=== PATIENT | male | born 1965 | race Caucasian/White ===

== ENCOUNTER 2016-12-13 18:14 | Emergency (ER) | payer SELFPAY ==
--- NOTE | 2016-12-13 21:39 | ED CLINICAL REPORT ---
Clinical Report - Physicians/Mid Levels [facility] [address] [place] [address] 12/13/2016 18:15 Patient: FELIX TILLMAN Time Seen: 18:57; initial patient contact. Arrived- By private vehicle. Historian- patient. HISTORY OF PRESENT ILLNESS Chief Complaint: HEMATURIA. This started about 2 days ago and is still present. The problem is described as moderate. No discomfort with urination, urinary frequency, urgency of urination or flank pain. Able to void. Not voiding only small amounts. Sexual history is noncontributory. Similar symptoms previously: Several times. Recent medical care: Not recently seen/assessed. REVIEW OF SYSTEMS The patient has had a sore throat, nasal congestion, fever, chills and abdominal pain. He has had sinus pain and a cough. No flank pain, vomiting or diarrhea. The patient has had hematuria. All systems otherwise negative, except as recorded above. PAST HISTORY ( Palendromic Rheumatism. Hypertension. Stage 1 kidney disease . Neck Pain. SURGERIES: Discectomy for intervertebral herniated disc, nucleus pulposus.). Medications: PredniSONE Oral (Tablet 5 mg) 1 tablet, daily. Plaquenil Oral (Tablet 200 mg) 1 tablet, bid. Lisinopril Oral (Tablet 5 mg) 1 tablet, daily. Allergies: Iodine. SOCIAL HISTORY Never smoker. No alcohol use or drug use. ADDITIONAL NOTES The nursing notes have been reviewed with agreement regarding the chief complaint, PMH and patient medications and allergies. PHYSICAL EXAM Vital Signs: 12/13/2016 18:41 BP: 127/77. HR: 74. RR: 18. O2 saturation: 97%. Temp: 98.8 F. Pain level now: 10. Have been reviewed as normal. Appearance: Alert. Oriented X3. No acute distress. ENT: Tenderness present to percussion/palpation of the sinuses. Mild generalized pharyngeal erythema with right tonsillar swelling and left tonsillar swelling. Neck: No lymphadenopathy. CVS: Heart sounds normal. Rate normal. Rhythm normal. Respiratory: No respiratory distress. Breath sounds normal. Abdomen: Soft and nontender. Bowel sounds normal. No organomegaly. No mass. Back: Normal external inspection. No CVA tenderness. Skin: Skin warm and dry. Normal skin color. No rash. Extremities: No lower extremity edema. Neuro: Oriented X 3. LABS, X-RAYS, AND EKG Laboratory Tests: UA-Culture if indicated: (RONALD: 12/13/2016 19:25) ( [facility] 12/13/2016 19:46) Final results Test Result Flag Units (Reference) URINE COLOR GREEN URINE APPEARANCE TURBID URINE GLUCOSE NEGATIVE (NEGATIVE) URINE BILIRUBIN NEGATIVE (NEGATIVE) URINE KETONE TRACE (NEGATIVE) URINE SPECIFIC GRAVITY >= 1.030 (1.010-1.030) URINE PH 5.0 (5.0-8.0) URINE PROTEIN 2+ (NEGATIVE) URINE UROBILINOGEN 0.2 EU/dL (0.2-1.0) URINE NITRITE NEGATIVE (NEGATIVE) URINE BLOOD 3+ (NEGATIVE) URINE LEUK ESTERASE NEGATIVE (NEGATIVE) URINE RBC 50-75 rbc/hpf (0-1) URINE WBC 10-15 wbc/hpf (0-1) URINE EPITHELIAL CELLS 10-15 EPI/hpf (0-5) RENAL TUBULAR CELLS URINE BACTERIA MANY (4+) (NONE SEEN) URINE COMMENT CULTURE INDICATED HYALINE CASTS 3+GRANULAR CASTS 2+CELLULAR CASTS-WBC 2+URINE CULTURES ARE SET-UP BASED ON THE FOLLOWING CRITERIA:POSITIVE NITRITEPOSITIVE LEUKOCYTE ESTERASEGREATER THAN 10 WHITE BLOOD CELLSMODERATE (2+) OR GREATER BACTERIA CBC w Diff: (RONALD: 12/13/2016 17:10) ( [facility] 12/13/2016 19:31) Final results Test Result Flag Units (Reference) WHITE BLOOD COUNT 10.1 K/uL (4.5-11.5) RED BLOOD COUNT 5.83 M/uL (4.50-5.90) HEMOGLOBIN 16.0 gm/dL (13.5-17.5) HEMATOCRIT 50.2 % (41.0-53.0) MEAN CELL VOLUME 86 fL (80-100) MEAN CORPUSCULAR HGB 28 pg (26-34) MEAN CORPUSCULAR HGB CONC 32 g/dL (31-37) RED CELL DISTRIBUTION WIDTH 13.2 % (11.6-14.8) PLATELET COUNT 256 K/uL (150-400) LYMPH % 9.7 L % (25-40) MONO % 5.2 % (3-14) GRANULOCYTE % 85.1 CMP: (RONALD: 12/13/2016 17:10) ( MsgRcvd 12/13/2016 19:35) Final results Test Result Flag Units (Reference) GLUCOSE 103 mg/dL (70-110) BUN 24 H mg/dL (7-18) CREATININE 1.8 H mg/dL (0.6-1.3) Estimated GFR 42.84 mL/min Estimated GFR- 51.92 mL/min Note: Persistent reduction over 3 months in eGFR<60 mL/min/1.73 m2 defines CKD. Patients with eGFR values>=60 mL/min/1.73 m2 may also have CKD if evidence ofpersistent proteinuria. Additional information may be foundat www.kidney.org. SODIUM 134 L mmol/L (136-145) POTASSIUM 5.1 mmol/L (3.5-5.1) CHLORIDE 97 L mmol/L (98-107) CARBON DIOXIDE 31 mmol/L (21-32) CALCIUM 8.7 mg/dL (8.5-10.1) TOTAL PROTEIN 7.7 g/dL (6.4-8.2) ALBUMIN 3.6 g/dL (3.3-5.0) BILIRUBIN, TOTAL 0.5 mg/dL (0.0-1.0) ALKALINE PHOSPHATASE 77 U/L (46-116) AST (SGOT) 28 U/L (15-37) ALT (SGPT) 56 U/L (12-78) LIPASE 128 U/L (73-393) AMYLASE 56 U/L (25-115) . PROGRESS AND PROCEDURES Course of Care: 12/13/2016 18:41 BP: 127/77. HR: 74. RR: 18. O2 saturation: 97%. Temp: 98.8 F. Pain level now: 02/05. Vital Signs: have been reviewed as normal. Consult obtained from nephrology. call returned 21:00 Dr. Trevino, recommended Tx UTI and repeat renal fxn in 2 days. Disposition: Discharged home in good and improved condition. Condition: good. CLINICAL IMPRESSION Urinary tract infection with cystitis and hematuria. Mild chronic renal insufficiency. Acute maxillary sinusitis INSTRUCTIONS Drink plenty of fluids. Your Current Medications: CONTINUE TAKING THE FOLLOWING MEDICATIONS: Lisinopril Oral : Tablet 5 mg, 1 tablet daily. Plaquenil Oral : Tablet 200 mg, 1 tablet bid. PredniSONE Oral : Tablet 5 mg, 1 tablet daily. Prescription Medications: Levofloxacin 500 mg: take 1 tab orally every day for 7 days. No refills. Follow-up: Follow up with your doctor Dr. Trevino. Blood pressure screening was not performed during this visit because the patient has an active diagnosis of hypertension. (Electronically signed by Erick Cee Dr. 12/15/2016 3:40)
--- NOTE | 2016-12-13 21:39 | ED NURSING NOTES ---
Clinical Report - Nurses [facility] [address] [place] [address] 12/13/2016 18:15 Patient: FELIX TILLMAN TRIAGE Triage time 18:41 Dec 13 2016. Acuity: LEVEL 3. Chief Complaint: HEMATURIA. 18:41 12/13/16. SEPSIS SCREEN: Sepsis Screen. Negative (no infection suspected/documented). --18:48 Henrietta Trevino R.N. 18:41 12/13/16. BP: 127/77. HR: 74. RR: 18. O2 saturation: 97%. Temp: 98.8 F. Pain level now: 02/05. --18:48 Henrietta Trevino R.N. Weight: 78 kg measured. Height/Length: 69 inches Per Patient. BMI: 25.4. --18:40 Henrietta Trevino R.N. Medications Lisinopril Oral (Tablet 5 mg) 1 tablet, daily. --18:43 Henrietta Trevino R.N. Plaquenil Oral (Tablet 200 mg) 1 tablet, bid. --18:44 Henrietta Trevino R.N. PredniSONE Oral (Tablet 5 mg) 1 tablet, daily. --18:44 Henrietta Trevino R.N. Medication/allergy information source: the patient. --18:48 Henrietta Trevino R.N. Allergies Iodine. --18:44 Henrietta Trevino R.N. History Arrived by private vehicle. Historian: patient. Accompanied by family. Onset. (5 days ago). ( 2 weeks URI, 5 days ago had pain in left flank but not now. Urine turned dark 2 nights ago..Went to [facility] walk in clinic and was sent here for eval of fever and hematuria). He has been unable to void. PAST MEDICAL HX: Immunizations: seasonal influenza. Has not received pneumonia vaccine. SOCIAL HX: Never smoker. Occasional alcohol use. No drug use. No infectious disease exposure. ABUSE ASSESSMENT: No report of abuse. SELF HARM ASSESSMENT: A self harm assessment was performed. The patient answered "no" to the question "Have you recently felt down, depressed, or hopeless?", "Have you noticed less interest or pleasure in doing things?", "Do you have thoughts of harming or killing yourself?", "Are you here because you tried to hurt yourself?", "Have you ever tried to hurt yourself before today?", "Have you recently had thoughts about harming or killing others?" and "Do you have any dangerous items in your possession?". FALL RISK ASSESSMENT: Fall risk assessment completed. No fall risk identified. NUTRITIONAL RISK ASSESSMENT: The nutritional risk assessment revealed no deficiencies. FUNCTIONAL ASSESSMENT: Functional assessment: no impairments noted. LEARNING NEEDS ASSESSMENT: The learning needs assessment revealed no barriers. SKIN INTEGRITY ASSESSMENT: Skin integrity risk assessment completed. No skin integrity risk identified. --18:48 Henrietta Trevino R.N. PROBLEMS: Palendromic Rheumatism. Hypertension. Stage 1 kidney disease . Neck Pain. --18:45 Henrietta Trevino R.N. ADDITIONAL SURGERIES: Discectomy for intervertebral herniated disc, nucleus pulposus. --18:45 Henrietta Trevino R.N. Interventions ID band on patient. --18:48 Henrietta Trevino R.N. PHYSICAL ASSESSMENT 18:45 12/13/16. Ambulatory to room. GENERAL / NEURO / PSYCH: Alert. Oriented X 4. HEENT: Mucous membranes are pink. RESPIRATORY: Respirations not labored. Breath sounds within normal limits. CVS: Capillary refill less than 2 seconds. GI / : Abdomen soft. No emesis noted. Pain with urination. Hematuria noted. No CVA tenderness or urgency of urination. Patient is not incontinent of urine. SKIN: Skin is warm and dry. --19:19 Henrietta Trevino R.N. NURSING PROGRESS NOTES 18:41 12/13/16. The initial plan of care for this patient includes an assessment with efforts to address the patient's anxiety; the presence of pain; impairment of the genitourinary system. This plan of care was discussed with the patient and family. Patient gowned. Reassurance given. Patient identifiers checked. Call light placed in reach. Side rails up x 1. Bed placed in lowest position. Brakes of bed on. Patient ready for evaluation. --19:19 Henrietta Trevino R.N. 19:10 12/13/2016 Site #1 started via IV in the right antecubital space with an 18g angiocath, with aseptic technique and good blood return; one attempt. Blood drawn: rainbow set. Labeled in the presence of the patient and sent to the lab. --19:20 Henrietta Trevino R.N. 19:21 12/13/2016 Started bag #1 1000 mL IV Fluids IV NS (Saline); at 3000 mL/hr over 20 minute(s) via site #1. Allergies verified and confirmed 5 rights. IV patency established. IV site checked: no pain, redness, or swelling. IV flushed thoroughly pre- and post-medication administration. --19:21 Henrietta Trevino R.N. 19:25 12/13/16. Patient ID band checked for patient name and birthdate. Instructions provided to collect clean catch urine and patient verbalized understanding. Clean catch urine collected with return of green-colored brown-colored urine; sample sent to lab for urinalysis. Specimen labeled in the presence of the patient. --19:28 Henriteta Trevino R.N. 19:41 12/13/2016 IV Fluids IV NS Discontinued: bag #1. Total amount infused: 1000 mL. IV patency established. IV site checked: no pain, redness, or swelling. IV flushed thoroughly. --19:48 Henrietta Trevino R.N. 21:31 12/13/16. ( Dr Cee in room to review test results and plan of follow up care). --21:31 Henrietta Trevino R.N. 21:54 12/13/16. --21:54 Henrietta Trevino R.N. Intake & Output IV fluids: 1000. Urine: 30 mL. --21:55 Henrietta Trevino R.N. [facility] / [facility]-- 20:34 12/13[facility]16. Condition at departure: improved and stable. The goals identified in the patient's plan of care were met. No learning barriers present. Reviewed medication(s) side effects, precautions, dosing and course information. Prescription(s) given to the patient. Patient verbalized understanding. Written instructions provided in Indian. The patient was discharged home and accompanied by electrical integrator. He left the Emergency Department ambulatory and via private vehicle. Air Hole Driller driving. FALL RISK ASSESSMENT: Fall risk assessment completed. No fall risk identified. --20:34 Henrietta Trevino R.N. --END STRIKE>> Charted On Wrong Patient --20:38 Henrietta Trevino R.N. [facility]-- Departure time: 20:35 Dec 13 2016. --20:35 Henrietta Trevino R.N. --END STRIKE>> Correction --20:38 Henrietta Trevino R.N. 21:52 12/13/2016 Site #1 removed upon discharge. Catheter intact. Bandaid applied. --21:54 Henrietta Trevino R.NAmber 21:54 12/13/16. Condition at departure: improved and stable. The goals identified in the patient's plan of care were met. FALL RISK ASSESSMENT: Fall risk assessment completed. No fall risk identified. --21:54 Henrietta Trevino R.N. 21:54 12/13/16. BP: 104/71. HR: 78. RR: 16. O2 saturation: 100%. Temp: 98.6 F. Pain level now 02/05. --21:54 Henrietta Trevino R.N. 22:00 12/13/16. No learning barriers present. Discharge instructions provided and reviewed with the patient and spouse. Reviewed medication(s) side effects, precautions, dosing and course information. Prescription(s) given to the patient. Reviewed referral to a drum sander and primary care physician for followup and testing. Patient and spouse verbalized understanding. Written instructions provided in Indian. The patient was discharged home and accompanied by spouse. He left the Emergency Department ambulatory and via private vehicle. Spouse driving. --22:00 Henrietta Trevino R.N. Departure time: 22:01 Dec 13 2016. --22:01 Henrietta Trevino R.N. Locked/Released at 12/13/2016 22:01 by Henrietta Trevino R.N.
--- NOTE | 2016-12-13 21:39 | ED NURSING NOTES ---
Clinical Report - Nurses [facility] [address] [place] [address] 12/13/2016 18:15 Patient: FELIX TILLMAN TRIAGE Triage time 18:41 Dec 13 2016. Acuity: LEVEL 3. Chief Complaint: HEMATURIA. 18:41 12/13/16. SEPSIS SCREEN: Sepsis Screen. Negative (no infection suspected/documented). --18:48 Henrietta Trevino R.N. 18:41 12/13/16. BP: 127/77. HR: 74. RR: 18. O2 saturation: 97%. Temp: 98.8 F. Pain level now: 02/05. --18:48 Henrietta Trevino R.N. Weight: 78 kg measured. Height/Length: 69 inches Per Patient. BMI: 25.4. --18:40 Henrietta Trevino R.N. Medications Lisinopril Oral (Tablet 5 mg) 1 tablet, daily. --18:43 Henrietta Trevino R.N. Plaquenil Oral (Tablet 200 mg) 1 tablet, bid. --18:44 Henrietta Trevino R.N. PredniSONE Oral (Tablet 5 mg) 1 tablet, daily. --18:44 Henrietta Trevino R.N. Medication/allergy information source: the patient. --18:48 Henrietta Trevino R.N. Allergies Iodine. --18:44 Henrietta Trevino R.N. History Arrived by private vehicle. Historian: patient. Accompanied by family. Onset. (5 days ago). ( 2 weeks URI, 5 days ago had pain in left flank but not now. Urine turned dark 2 nights ago..Went to [facility] walk in clinic and was sent here for eval of fever and hematuria). He has been unable to void. PAST MEDICAL HX: Immunizations: seasonal influenza. Has not received pneumonia vaccine. SOCIAL HX: Never smoker. Occasional alcohol use. No drug use. No infectious disease exposure. ABUSE ASSESSMENT: No report of abuse. SELF HARM ASSESSMENT: A self harm assessment was performed. The patient answered "no" to the question "Have you recently felt down, depressed, or hopeless?", "Have you noticed less interest or pleasure in doing things?", "Do you have thoughts of harming or killing yourself?", "Are you here because you tried to hurt yourself?", "Have you ever tried to hurt yourself before today?", "Have you recently had thoughts about harming or killing others?" and "Do you have any dangerous items in your possession?". FALL RISK ASSESSMENT: Fall risk assessment completed. No fall risk identified. NUTRITIONAL RISK ASSESSMENT: The nutritional risk assessment revealed no deficiencies. FUNCTIONAL ASSESSMENT: Functional assessment: no impairments noted. LEARNING NEEDS ASSESSMENT: The learning needs assessment revealed no barriers. SKIN INTEGRITY ASSESSMENT: Skin integrity risk assessment completed. No skin integrity risk identified. --18:48 Henrietta Trevino R.N. PROBLEMS: Palendromic Rheumatism. Hypertension. Stage 1 kidney disease . Neck Pain. --18:45 Henrietta Trevino R.N. ADDITIONAL SURGERIES: Discectomy for intervertebral herniated disc, nucleus pulposus. --18:45 Henrietta Trevino R.N. Interventions ID band on patient. --18:48 Henrietta Trevino R.N. PHYSICAL ASSESSMENT 18:45 12/13/16. Ambulatory to room. GENERAL / NEURO / PSYCH: Alert. Oriented X 4. HEENT: Mucous membranes are pink. RESPIRATORY: Respirations not labored. Breath sounds within normal limits. CVS: Capillary refill less than 2 seconds. GI / : Abdomen soft. No emesis noted. Pain with urination. Hematuria noted. No CVA tenderness or urgency of urination. Patient is not incontinent of urine. SKIN: Skin is warm and dry. --19:19 Henrietta Trevino R.N. NURSING PROGRESS NOTES 18:41 12/13/16. The initial plan of care for this patient includes an assessment with efforts to address the patient's anxiety; the presence of pain; impairment of the genitourinary system. This plan of care was discussed with the patient and family. Patient gowned. Reassurance given. Patient identifiers checked. Call light placed in reach. Side rails up x 1. Bed placed in lowest position. Brakes of bed on. Patient ready for evaluation. --19:19 Henrietta Trevino R.N. 19:10 12/13/2016 Site #1 started via IV in the right antecubital space with an 18g angiocath, with aseptic technique and good blood return; one attempt. Blood drawn: rainbow set. Labeled in the presence of the patient and sent to the lab. --19:20 Henrietta Trevino R.N. 19:21 12/13/2016 Started bag #1 1000 mL IV Fluids IV NS (Saline); at 3000 mL/hr over 20 minute(s) via site #1. Allergies verified and confirmed 5 rights. IV patency established. IV site checked: no pain, redness, or swelling. IV flushed thoroughly pre- and post-medication administration. --19:21 Henrietta Trevino R.N. 19:25 12/13/16. Patient ID band checked for patient name and birthdate. Instructions provided to collect clean catch urine and patient verbalized understanding. Clean catch urine collected with return of green-colored brown-colored urine; sample sent to lab for urinalysis. Specimen labeled in the presence of the patient. --19:28 Henrietta Trevino R.N. 19:41 12/13/2016 IV Fluids IV NS Discontinued: bag #1. Total amount infused: 1000 mL. IV patency established. IV site checked: no pain, redness, or swelling. IV flushed thoroughly. --19:48 Henrietta Trevino R.N. 21:31 12/13/16. ( Dr Cee in room to review test results and plan of follow up care). --21:31 Henrietta Trevino R.N. 21:54 12/13/16. --21:54 Henrietta Trevino R.N. Intake & Output IV fluids: 1000. Urine: 30 mL. --21:55 Henrietta Trevino R.N. [facility] 12/13[facility]16. Condition at departure: improved and stable. The goals identified in the patient's plan of care were met. No learning barriers present. Reviewed medication(s) side effects, precautions, dosing and course information. Prescription(s) given to the patient. Patient verbalized understanding. Written instructions provided in [place] Of [place]. The patient was discharged home and accompanied by heavy equipment diesel mechanic. He left the Emergency Department ambulatory and via private vehicle. Agile Test Lead driving. FALL RISK ASSESSMENT: Fall risk assessment completed. No fall risk identified. --20:34 Henrietta Trevino R.N. --END STRIKE>> Charted On Wrong Patient --20:38 Henrietta Tre[facility]ino R.N. [facility]-- Departure time: 20:35 Dec 13 2016. --20:35 Henrietta Trevino R.N. --END STRIKE>> Correction --20:38 Henrietta Trevino R.N. 21:52 12/13/2016 Site #1 removed upon discharge. Catheter intact. Bandaid applied. --21:54 Henrietta Trevino R.NAmber 21:54 12/13/16. Condition at departure: improved and stable. The goals identified in the patient's plan of care were met. FALL RISK ASSESSMENT: Fall risk assessment completed. No fall risk identified. --21:54 Henrietta Trevino R.N. 21:54 12/13/16. BP: 104/71. HR: 78. RR: 16. O2 saturation: 100%. Temp: 98.6 F. Pain level now 02/05. --21:54 Henrietta Trevino R.N. 22:00 12/13/16. No learning barriers present. Discharge instructions provided and reviewed with the patient and spouse. Reviewed medication(s) side effects, precautions, dosing and course information. Prescription(s) given to the patient. Reviewed referral to a senior network architect and primary care physician for followup and testing. Patient and spouse verbalized understanding. Written instructions provided in [place]. The patient was discharged home and accompanied by spouse. He left the Emergency Department ambulatory and via private vehicle. Spouse driving. --22:00 Henrietta Trevino R.N. Departure time: 22:01 Dec 13 2016. --22:01 Henrietta Trevino R.N. Locked/Released at 12/13/2016 22:01 by Henrietta Trevino R.N.
--- NOTE | 2016-12-13 21:40 | ED ORDER SUMMARY ---
..... Patient: FELIX TILLMAN OrderSheet Merged With [facility] VisitID: [id number] [place] [address] 51y, M Registration Date/Time: 12/13/2016 ORDER SHEET Weight: 78.0 kg (measured) Allergies: Iodine GENERAL ORDERS: CBC w Diff Urgent (19:05 12/13/2016 Arelis Beaulieu) (Ack 19:07 AMcQuoid ER Tech1) (19:21 EInderbitzen R.N.) CMP Urgent (19:05 12/13/2016 Arelis Beaulieu) (Ack 19:07 AMcQuoid ER Tech1) (19:21 EInderbitzen R.N.) UA-Culture if indicated Urgent (19:05 12/13/2016 Arelis Beaulieu) (Ack 19:07 AMcQuoid ER Tech1) (19:21 EInderbitzen R.N.) Amylase Urgent (19:05 12/13/2016 Arelis Beaulieu) (Ack 19:07 AMcQuoid ER Tech1) (19:21 EInderbitzen R.N.) Lipase Urgent (19:05 12/13/2016 Arelis Beaulieu) (Ack 19:07 AMcQuoid ER Tech1) (19:21 EInderbitzen R.N.) MEDICATION ORDERS: IV FLUIDS: IV NS : initial bolus none -, then 1000 mL/hr for X1 (NOW) (19:04 12/13/2016 Arelis Beaulieu) (19:21 EInderbitzen R.N.) ORDER SHEET NOTES: [Electronically signed by Henrietta Trevino R.N. (22:12/13/2016)] [Electronically signed by Erick Cee Dr. (03:40 12/15/2016)] [Electronically locked/signed by Henrietta Trevino R.N. (22:12/13/2016)]
--- NOTE | 2016-12-13 21:40 | ED ORDER SUMMARY ---
..... Patient: FELIX TILLMAN OrderSheet [facility] VisitID: [id number] [place] [address] 51y, M Registration Date/Time: 12/13/2016 ORDER SHEET Weight: 78.0 kg (measured) Allergies: Iodine GENERAL ORDERS: CBC w Diff Urgent (19:05 12/13/2016 Arelis Beaulieu) (Ack 19:07 AMcQuoid ER Tech1) (19:21 EInderbitzen R.N.) CMP Urgent (19:05 12/13/2016 Arelis Beaulieu) (Ack 19:07 AMcQuoid ER Tech1) (19:21 EInderbitzen R.N.) UA-Culture if indicated Urgent (19:05 12/13/2016 Arelis Beaulieu) (Ack 19:07 AMcQuoid ER Tech1) (19:21 EInderbitzen R.N.) Amylase Urgent (19:05 12/13/2016 Arelis Beaulieu) (Ack 19:07 AMcQuoid ER Tech1) (19:21 EInderbitzen R.N.) Lipase Urgent (19:05 12/13/2016 Arelis Beaulieu) (Ack 19:07 AMcQuoid ER Tech1) (19:21 EInderbitzen R.N.) MEDICATION ORDERS: IV FLUIDS: IV NS : initial bolus none -, then 1000 mL/hr for X1 (NOW) (19:04 12/13/2016 Arelis Beaulieu) (19:21 EInderbitzen R.N.) ORDER SHEET NOTES: [Electronically signed by Henrietta Trevino R.N. (22:12/13/2016)] [Electronically signed by Erick Cee Dr. (03:40 12/15/2016)] [Electronically locked/signed by Henrietta Trevino R.N. (22:12/13/2016)]
--- NOTE | 2016-12-15 03:41 | ED DISCHARGE INSTRUCTIONS ---
Patient: FELIX TILLMAN General Instructions [facility] VisitID: [id number] [place] [address] 51y, M Registration Date/Time: 12/13/2016 Urinary tract infection with cystitis and hematuria. Mild chronic renal insufficiency. Acute maxillary sinusitis INSTRUCTIONS Drink plenty of fluids. Your Current Medications: CONTINUE TAKING THE FOLLOWING MEDICATIONS: Lisinopril Oral : Tablet 5 mg, 1 tablet daily. Plaquenil Oral : Tablet 200 mg, 1 tablet bid. PredniSONE Oral : Tablet 5 mg, 1 tablet daily. Prescription Medications: Levofloxacin 500 mg: take 1 tab orally every day for 7 days. No refills. Follow-up: Follow up with your doctor Dr. Trevino. Blood pressure screening was not performed during this visit because the patient has an active diagnosis of hypertension. ADDITIONAL INFORMATION Bladder Infection,Male (Adult) A bladder infection ("cystitis" or "UTI") usually causes a constant urge to urinate, and a burning when passing urine. Urine may be cloudy, smelly or dark. There may be also be pain in the lower abdomen. Cystitis in males is not common. It may be caused by a partial blockage in the urinary system that keeps the bladder from emptying completely. This is most often related to an enlarged prostate gland. Home Care: Drink lots of fluids (at least 6-8 glasses a day). This will flush the bacteria out of your bladder. Avoid sexual intercourse until your symptoms are gone. Avoid caffeine, alcohol, and spicy foods. They could irritate the bladder. A bladder infection is treated with antibiotics. You may also be given Pyridium (generic - phenazopyridine) to reduce burning with urination. This will cause urine to become a bright orange color, which can stain clothing. Follow Up with your doctor or this facility if ALL symptoms have not cleared within five days. It is important to keep your follow up appointment to discuss with your doctor the need for further tests of the urinary tract. Get Prompt Medical Attention if any of the following occur: Fever of 100.4F (38C) or higher, or as directed by your healthcare provider No improvement by the third day of treatment Increasing back or abdominal pain Repeated vomiting; unable to keep medicine down Weakness, dizziness or fainting Renal Insufficiency The role of the kidneys is to remove waste products and excess water from the body. When the kidneys do not function normally, waste products build up in the blood.The early stage of this process is called renal insufficiency . If renal insufficiency worsens it can lead to chronic renal failure. This allows excess water, waste and toxic substances to build up in the body. This can become a threat to life, requiring dialysis or a kidney transplant to stay alive. Diabetes is the leading causes of renal insufficiency. Other causes include high blood pressure, hardening of the arteries, lupus, inflammation of the blood vessels (vasculitis), prior viral and bacterial infections, and others. Certain [id number] pain medicines can cause renal failure when taken often over a long period of time. These include aspirin, ibuprofen (Advil, Motrin) and related anti-inflammatory medicines. Home Care: If you have diabetes, talk to your doctor about the quality of your blood sugar control.Ask about any changes needed to your diet or medicines. If you have high blood pressure: Take your blood pressure medicine. Take up a regular exercise program that you enjoy.Check with your doctor to be sure your planned exercise program is right for you. Reduce your salt (sodium) intake.Your doctor can tell you how much salt per day is safe for you. If you are overweight, talk to your doctor about a weight loss plan. If you smoke, you must quit.Smoking worsens kidney disease.Talk to your doctor about ways to help you quit.For more information, visit the following links: www.smokefree.gov/pubs/clearing_the_air.pdf www.smokefree.gov www.quitnet.com Talk to your doctor about any dietary restrictions advised. In general, it is advisable to limit protein, salt, potassium and phosphorus.Avoid excess fluids. Do not add salt at the table and avoid salty foods.A calcium supplement may be prescribed to protect your bones from osteoporosis. Avoid the following over the counter medicines, or consult your doctor before using: Aspirin and anti-inflammatory drugs such as ibuprofen (Advil, Motrin), naprosyn (Aleve); [Short term use of acetaminophen (Tylenol) for fever or pain is okay.] Laxatives and antacids containing magnesium or aluminum (Mylanta, Maalox) Avoid Fleet or phosphosoda enemas which contain phosphorus Certain stomach acid-blocking medicine such as cimetidine (Tagamet), ranitidine (Zantac) Decongestants containing pseudoephedrine (such as some forms of Sudafed or Actifed) Herbal supplements Follow Up with your doctor or as advised by our staff. Contact one of the following for more information. [place] [phone] www.aakp.org National Kidney Foundation www.kidney.org Return Promptly or contact your doctor if any of the following occurs: Nausea or vomiting Severe weakness, dizziness, fainting, drowsiness or confusion Chest pain or shortness of breath Unexpected weight gain or swelling in the legs, ankles or around the eyes Heart beating fast, slow or irregularly Decrease or loss in urine output Sinusitis [Abx Tx] The sinuses are air-filled spaces within the bones of the face. They connect to the inside of the nose. Sinusitis is an inflammation of the tissue lining the sinus cavity. Sinus inflammation can occur during a cold or hay-fever (allergies to pollens and other particles in the air) and cause symptoms of sinus congestion and fullness. A sinus infection causes fever, headache and facial pain. There is usually green or yellow drainage from the nose or into the back of the throat (post-nasal drip). Antibiotics are prescribed to treat this condition. Home Care: Drink plenty of water, hot tea, and other liquids to stay well hydrated. This thins the mucus and promotes sinus drainage. Apply heat to the painful areas of the face. Use a towel soaked in hot water. Or, stand grinder the shower and direct the hot spray onto your face. This is a good way to inhale warm water vapor and get heat on your face at the same time. (Cover your mouth and nose with your hands so you can still breathe as you do this.) Use a vaporizer with products such as VicSoundRoadie VapoRub (contains menthol) at night. Suck on peppermint, menthol or eucalyptus hard candies during the day. An expectorant containing guaifenesin (such as Robitussin), helps to thin the mucus and promote drainage from the sinuses. Xbnt-tpe-vfgprrj decongestants may be used unless a similar medicine was prescribed. Nasal sprays work the fastest. Use one that contains phenylephrine (Dave-synephrine, Sinex and others) or oxymetazoline (Afrin). First blow the nose gently to remove mucus, then apply the drops. Do not use these medicines more often than directed on the label or for more than three days or symptoms may worsen. You may also use tablets containing pseudoephedrine (Sudafed). Many sinus remedies combine ingredients, which may increase side effects. Read the labels or ask the pharmacist for help. NOTE: Persons with high blood pressure should not use decongestants. They can raise blood pressure. Antihistamines are useful if allergies are a cause of your sinusitis. The mildest one is chlorpheniramine (available without a prescription). The dose for adults is 8-12mg three times a day. [NOTE: Do not use chlorpheniramine if you have glaucoma or if you are a man with trouble urinating due to an enlarged prostate.] Claritin (loratidine) is an antihistamine that causes less drowsiness and is a good alternative for daytime use. Do not use nasal rinses or irrigation during an acute sinus infection, unless advised by your doctor. Rinsing may spread the infection to other sinuses. You may use acetaminophen (Tylenol) or ibuprofen (Motrin, Advil) to control pain, unless another pain medicine was prescribed. [ NOTE: If you have chronic liver or kidney disease or ever had a stomach ulcer, talk with your doctor before using these medicines.] (Aspirin should never be used in anyone under 18 years of age who is ill with a fever. It may cause severe liver damage.) Finish the full course, even if you are feeling better after a few days. Follow Up with your doctor or this facility in one week or as instructed by our staff if not improving. Get Prompt Medical Attention if any of the following occur: Facial pain or headache becomes more severe Stiff neck Unusual drowsiness or confusion, or not acting like your normal self Swelling of the forehead or eyelids Vision problems including blurred or double vision Fever of 100.4F (38C) or higher, or as directed by your healthcare provider Seizure Levofloxacin Oral tablet What is this medicine? LEVOFLOXACIN (avis roger) is a quinolone antibiotic. It is used to treat certain kinds of bacterial infections. It will not work for colds, flu, or other viral infections. How should I use this medicine? Take this medicine by mouth with a full glass of water. Follow the directions on the prescription label. This medicine can be taken with or without food. Take your medicine at regular intervals. Do not take your medicine more often than directed. Do not skip doses or stop your medicine early even if you feel better. Do not stop taking except on your doctor's advice. A special MedGuide will be given to you by the pharmacist with each prescription and refill. Be sure to read this information carefully each time. Talk to your re etcher regarding the use of this medicine in children. While this drug may be prescribed for children as young as 6 months for selected conditions, precautions do apply. What side effects may I notice from receiving this medicine? Side effects that you should report to your doctor or health career development facilitator as soon as possible: -allergic reactions like skin rash or hives, swelling of the face, lips, or tongue -changes in vision -confusion, nightmares or hallucinations -difficulty breathing -irregular heartbeat, chest pain -joint, muscle or tendon pain -pain or difficulty passing urine -persistent headache with or without blurred vision -redness, blistering, peeling or loosening of the skin, including inside the mouth -seizures -unusual pain, numbness, tingling, or weakness -vaginal irritation, discharge Side effects that usually do not require medical attention (report to your doctor or health career development facilitator if they continue or are bothersome): -diarrhea -dry mouth -headache -stomach upset, nausea -trouble sleeping What may interact with this medicine? Do not take this medicine with any of the following medications: - arsenic trioxide - chloroquine - droperidol - medicines for irregular heart rhythm like amiodarone, disopyramide, dofetilide, flecainide, quinidine, procainamide, sotalol - some medicines for depression or mental problems like phenothiazines, pimozide, and ziprasidone This medicine may also interact with the following medications: - amoxapine -antacids - cisapride - dairy products - didanosine (ddI) buffered tablets or powder - haloperidol - multivitamins -NSAIDS, medicines for pain and inflammation, like ibuprofen or naproxen - retinoid products like tretinoin or isotretinoin - risperidone - some other antibiotics like clarithromycin or erythromycin - sucralfate - theophylline - warfarin What if I miss a dose? If you miss a dose, take it as soon as you remember. If it is almost time for your next dose, take only that dose. Do not take double or extra doses. Where should I keep my medicine? Keep out of the reach of children. Store at room temperature between 15 and 30 degrees C (59 and 86 degrees F). Keep in a tightly closed container. Throw away any unused medicine after the expiration date. What should I tell my health care provider before I take this medicine? They need to know if you have any of these conditions: cerebral disease irregular heartbeat kidney disease seizure disorder an unusual or allergic reaction to levofloxacin, other antibiotics or medicines, foods, dyes, or preservatives or trying to get breast-feeding What should I watch for while using this medicine? Tell your doctor or health career development facilitator if your symptoms do not improve or if they get worse. Drink several glasses of water a day and cut down on drinks that contain caffeine. You must not get dehydrated while taking this medicine. You may get drowsy or dizzy. Do not drive, use machinery, or do anything that needs mental alertness until you know how this medicine affects you. Do not sit or stand up quickly, especially if you are an older patient. This reduces the risk of dizzy or fainting spells. This medicine can make you more sensitive to the sun. Keep out of the sun. If you cannot avoid being in the sun, wear protective clothing and use a sunscreen. Do not use sun lamps or tanning beds/booths. Contact your doctor if you get a sunburn. If you are a diabetic monitor your blood glucose carefully. If you get an unusual reading stop taking this medicine and call your doctor right away. Do not treat diarrhea with eagf-rre-dktzxtq products. Contact your doctor if you have diarrhea that lasts more than 2 days or if the diarrhea is severe and watery. Avoid antacids, calcium, iron, and zinc products for 2 hours before and 2 hours after taking a dose of this medicine. You have been given the following additional information: Bladder Infection, Male (Adult) Renal Insufficiency Sinusitis, Abx Tx Levofloxacin Oral tablet (Electronically signed by Erick Cee Dr. 12/15/2016 3:40)
--- NOTE | 2016-12-15 03:41 | ED MED RECONCILIATION SUMMARY ---
Patient: FELIX TILLMAN Medication Reconciliation Report [facility] VisitID: [id number] [address] [place] [place] [address] 51y, M Registration Date/Time: 12/13/2016 Weight: 78.0 kg Height/Length: 69 in. BMI: 25.4 ALLERGIES: Iodine The patient's Home Medications are listed below: CONTINUE TAKING THE FOLLOWING MEDICATIONS: Lisinopril Oral (5 mg) 1 tablet, daily Plaquenil Oral (200 mg) 1 tablet, bid PredniSONE Oral (5 mg) 1 tablet, daily The source(s) of the original Home Medication information: patient The following Medications were given to the patient in the Emergency Department: IV NS IV Fluids bolus 0, then 3000 mL/hr, administered: 12/13/2016 7:21:00 PM The following Medications were prescribed to the patient: Levofloxacin 500 mg: take 1 tab orally every day for 7 days. No refills. -- Erick Cee Dr.
--- NOTE | 2016-12-15 03:41 | ED MAR SUMMARY ---
..... Medication Administration Record [facility] [address] [place] [address] Patient: FELIX TILLMAN Visit ID: [id number] 51y, M Weight: 78.0 kg Height/Length: 69 in BMI: 25.4 ALLERGIES: Iodine Start 19:21 12/13/2016 Henrietta Trevino R.N., Stop 19:41 12/13/2016 Henrietta Trevino R.N. Medication Administered: IV NS (SALINE), Dose: IV Fluids over 20 minute(s), Rate: 3000 mL/hr, Dispensed: 1000 mL bag, Site: #1 right AC. Medication Ordered: IV NS : initial bolus none -, then 1000 mL/hr for X1 (NOW).
--- NOTE | 2016-12-15 03:41 | ED MAR SUMMARY ---
..... Medication Administration Record [facility] [address] [place] [address] Patient: FELIX TILLMAN Visit ID: [id number] 51y, M Weight: 78.0 kg Height/Length: 69 in BMI: 25.4 ALLERGIES: Iodine Start 19:21 12/13/2016 Henrietta Trevino R.N., Stop 19:41 12/13/2016 Henrietta Trevino R.N. Medication Administered: IV NS (SALINE), Dose: IV Fluids over 20 minute(s), Rate: 3000 mL/hr, Dispensed: 1000 mL bag, Site: #1 right AC. Medication Ordered: IV NS : initial bolus none -, then 1000 mL/hr for X1 (NOW).
--- NOTE | 2016-12-15 03:41 | ED MED RECONCILIATION SUMMARY ---
Patient: FELIX TILLMAN Medication Reconciliation Report [facility] VisitID: [id number] [address] [place] [address] 51y, M Registration Date/Time: 12/13/2016 Weight: 78.0 kg Height/Length: 69 in. BMI: 25.4 ALLERGIES: Iodine The patient's Home Medications are listed below: CONTINUE TAKING THE FOLLOWING MEDICATIONS: Lisinopril Oral (5 mg) 1 tablet, daily Plaquenil Oral (200 mg) 1 tablet, bid PredniSONE Oral (5 mg) 1 tablet, daily The source(s) of the original Home Medication information: patient The following Medications were given to the patient in the Emergency Department: IV NS IV Fluids bolus 0, then 3000 mL/hr, administered: 12/13/2016 7:21:00 PM The following Medications were prescribed to the patient: Levofloxacin 500 mg: take 1 tab orally every day for 7 days. No refills. -- Erick Cee Dr.
== END 2016-12-13 22:01 | disposition home or self-care (01) ==
LOC: ED SRH 18:14
DX: N30.91 Cystitis, unspecified with hematuria (principal); J01.00 Acute maxillary sinusitis, unspecified; N18.9 Chronic kidney disease, unspecified; I12.9 Hypertensive chronic kidney disease with stage 1 through stage 4 chronic kidney disease, or unspecified chronic kidney disease; Z91.041 Radiographic dye allergy status; Z79.899 Other long term (current) drug therapy
CPT/HCPCS: 90004; 90100; 90469; 92235; 92530; 95059